=== PATIENT | male | born 1985 | race American Indian/Alaskan Native ===

== ENCOUNTER 2018-06-24 11:52 | Emergency (ER) | payer BC ==
[2018-06-24] MEDS ORDERED: Tetracaine HCl/PF 0.5% 4 ML Bottle EYERT ONE (12:37)
[2018-06-24] MEDS ORDERED: Fluorescein 1 MG Ophth Strip EYERT ONE (12:38)
[2018-06-24] MEDS ORDERED: Gentamicin 0.3% Ophth Soln 5 ML Bottle EYERT ONE (12:39)
--- NOTE | 2018-06-24 12:59 | EDM.PDOC ---
Scribed by Lee Ann Hutchinson 06/24/18 1259 for Calvin Bray MD ED HPI GENERAL MEDICAL PROBLEM - General Chief Complaint: Eye Problems Stated Complaint: EYE PROBELMS Time Seen by Provider: 06/24/18 12:37 Source of Information: Reports: Patient, RN, RN Notes Reviewed History Limitations: Reports: No Limitations - History of Present Illness INITIAL COMMENTS - FREE TEXT/NARRATIVE: Patient presents to ER with complaint of pain in the right eye. He thinks he has something in the right eye for 3 days. He states has contacts in and felt something at the upper portion of the eye. He wears soft contacts and had to keep them in for about 3 hours after the irritation began. The right eye and eyelid is red and swollen, states has been having tears and pinkeye over the counter med, took Tylenol yesterday. Today he rates the pain 5/10 but took nothing for pain today. He states his vision is blurry with the right eye. Onset: Gradual Duration: Getting Worse Location: Reports: Other (right eye) Quality: Reports: Ache Severity: Moderate Improves with: Reports: None Worsens with: Reports: None Associated Symptoms: Reports: No Other Symptoms Right Eye Pain Score (Numeric/FACES): 5 - Related Data Allergies Allergy/AdvReac Type Severity Reaction Status Date / Time No Known Allergies Allergy Verified 06/24/18 12:05 Home Meds: Home Meds Omeprazole 20 mg PO DAILY 06/24/18 [History] Past Medical History HEENT History: Reports: Impaired Vision Other HEENT History: wears glasses Cardiovascular History: Reports: None Respiratory History: Reports: None Gastrointestinal History: Reports: GERD Genitourinary History: Reports: None Musculoskeletal History: Reports: None Neurological History: Reports: None Psychiatric History: Reports: None Endocrine/Metabolic History: Reports: None Hematologic History: Reports: None Immunologic History: Reports: None Oncologic (Cancer) History: Reports: None Dermatologic History: Reports: None - Infectious Disease History Infectious Disease History: Reports: None - Past Surgical History Head Surgeries/Procedures: Reports: None Social & Family History - Family History Family Medical History: Noncontributory - Tobacco Use Smoking Status *Q: Current Every Day Smoker Years of Tobacco use: 1 Packs/Tins Daily: 0.5 Second Hand Smoke Exposure: No - Caffeine Use Caffeine Use: Reports: Energy Drinks - Recreational Drug Use Recreational Drug Use: No - Living Situation & Occupation Living situation: Reports: with Family Occupation: Employed ED ROS GENERAL - Review of Systems Review Of Systems: ROS reveals no pertinent complaints other than HPI. ED EXAM GENERAL W FULL EYE - Physical Exam Exam: See Below Exam Limited By: No Limitations General Appearance: Alert, WD/WN, No Apparent Distress Eye Exam: Right Eye: Conjunctival Injection, Corneal Abrasion, Left Eye: Normal Inspection, Bilateral Eye: EOMI, PERRL Eyelids: Right: Erythema (mild), Lid Everted for Exam, Left: Normal Appearance Conjunctiva & Sclera: Right: Discharge, Injected, Left: Normal Appearance Cornea Exam: Right: Corneal Abrasion, Examined with Flourescein, Left: Normal Appearance Extraocular Movements: Bilateral: Intact Pupils: Normal Accommodation Pupillary Size: Bilateral: 3 mm Pupillary Reaction: Bilateral: Brisk Anterior Chamber: Right: Normal Appearance Ears: Normal External Exam Nose: Normal Inspection Throat/Mouth: Normal Voice, No Airway Compromise Head: Atraumatic, Normocephalic Neck: Normal Inspection Respiratory/Chest: No Respiratory Distress Neurological: Alert, Oriented, No Motor/Sensory Deficits Psychiatric: Normal Mood Skin Exam: Warm, Dry, Intact, Normal Color, No Rash Course - Vital Signs Last Recorded V/S: Last Vital Signs Temp 34.9 C L 06/24/18 11:59 Pulse 109 H 06/24/18 11:59 Resp 16 06/24/18 11:59 BP 145/93 H 06/24/18 12:10 Pulse Ox 98 06/24/18 11:59 - Orders/Labs/Meds Meds: Medications Discontinued Medications Generic Name Dose Route Start Last Admin Trade Name Yony PRRiley Reason Stop Dose Admin Fluorescein Sodium 1 mg 06/24/18 12:38 06/24/18 12:48 Ful-Morena EYERT 06/24/18 12:39 1 mg ONETIME ONE Administration Gentamicin Sulfate 1 ml 06/24/18 12:39 06/24/18 12:48 Garamycin 0.3% Ophth Soln EYERT 06/24/18 12:40 1 ml ONETIME ONE Administration Tetracaine HCl 1 ml 06/24/18 12:37 06/24/18 12:48 Tetracaine 0.5% Steri-Unit Lyndsay EYERT 06/24/18 12:38 1 ml ONETIME ONE Administration Departure - Departure Time of Disposition: 12:56 Disposition: Home, Self-Care 01 Condition: Good Clinical Impression: Corneal abrasion Qualifiers: Encounter type: initial encounter Laterality: right Qualified Code(s): S05.01XA - Injury of conjunctiva and corneal abrasion without foreign body, right eye, initial encounter Conjunctivitis Qualifiers: Conjunctivitis type: acute Acute conjunctivitis type: unspecified Laterality: right Qualified Code(s): H10.31 - Unspecified acute conjunctivitis, right eye - Discharge Information *PRESCRIPTION DRUG MONITORING PROGRAM REVIEWED*: Not Applicable *COPY OF PRESCRIPTION DRUG MONITORING REPORT IN PATIENT [place]: Not Applicable Instructions: Corneal Abrasion Forms: ED Department Discharge Additional Instructions: Rx: Tylenol No. 3 *Do not drive or work while under the influence of this medication. Gentamicin Ophthalmic Solution 0.3% Do not wear contact lens in right eye until completely improved. Do not rub or wipe the right eye. Follow up in eye clinic on Tuesday, for recheck. I have read and agree with the documentation that has been completed regarding this visit. By signing this record, I attest that the documentation was completed in my physical presence and is an accurate record of the encounter.
== END 2018-06-24 13:05 | disposition home or self-care (01) ==
LOC: DL.ED 11:52
DX: S05.01XA Injury of conjunctiva and corneal abrasion without foreign body, right eye, initial encounter (principal); H10.31 Unspecified acute conjunctivitis, right eye; F17.210 Nicotine dependence, cigarettes, uncomplicated; X58.XXXA Exposure to other specified factors, initial encounter
CPT/HCPCS: 99283; A9270

== ENCOUNTER 2024-09-10 12:19 | Emergency (ER) | payer BC ==
[2024-09-10] MEDS ORDERED: Sodium Chloride 0.9% 10 ML Syringe FLUSH PRN (12:58)
[2024-09-10] MEDS: HYDROmorphone 1 MG/ML Syringe IVPUSH ONE ×2 (13:12→15:55)
[2024-09-10] MEDS: Ondansetron 4 MG/2 ML SDV IVPUSH ONE (13:12)
[2024-09-10 13:15] LABS: BASOPHILS PERCENT AUTO 0.1 % (0.0-1.0); EOSINOPHILS PERCENT AUTO 0.6 % (1.0-3.0); HEMATOCRIT 41.1 % (40.0-54.0); HEMOGLOBIN 14.1 g/dL (14.0-18.0); LYMPHOCYTES PERCENT AUTO 6.5 % (20.5-50.1); MEAN CORPUSCULAR HGB CONC 34.3 g/dL (33.0-35.0); MEAN CORPUSCULAR VOLUME 81.7 fL (80-100); MONOCYTES PERCENT AUTO 6.1 % (2-8); NEUTROPHILS PERCENT AUTO 86.7 % (42.2-75.2); PLATELET COUNT,PLT 401 10^3/uL (150-450); RED BLOOD CELL COUNT 5.03 10^6/uL (4.6-6.2); WHITE BLOOD CELL COUNT,WBC 13.4 10^3/uL (5.0-10.0)
[2024-09-10] MEDS: Sodium Chloride 0.9% 1,000 ML IV ONE ×2 (13:19→16:28)
[2024-09-10 13:36] LABS: INR 1.1 (0.9-1.2); PROTHROMBIN TIME 11.7 SEC (9.0-12.0); PTT,PARTIAL THROMBOPLSTIN TIME 24.9 SEC (22.0-34.0)
[2024-09-10 13:42] LABS: LACTIC ACID 2.2 mmol/L (0.4-2.0)
[2024-09-10 13:50] LABS: A/G RATIO 0.7; ALANINE AMINOTRANSFERASE,ALT 44 U/L (16-63); ALBUMIN 3.5 g/dL (3.4-5.0); ALKALINE PHOSPHATASE 125 U/L (46-116); ANION GAP 22.7 mEq/L (7-13); ASPARTATE AMNIOTRANSFERASE,AST 23 U/L (15-37); BILIRUBIN DIRECT 0.6 mg/dL (0.0-0.2); BILIRUBIN TOTAL 1.9 mg/dL (0.2-1.0); BLOOD UREA NITROGEN,BUN 15 mg/dL (7-18); BUN/CREATININE RATIO 10.2 (No establ ref range); C-REACTIVE PROTEIN 10.08 ng/dL (<=0.50); CALCIUM 9.7 mg/dL (8.5-10.1); CARBON DIOXIDE,CO2 20 mmol/L (21-32); CHLORIDE,CL 97 mmol/L (98-107); CREATININE 1.47 mg/dL (0.70-1.30); EST CRCL DRUG DOSING (CG) 74.05 mL/min; GLUCOSE RANDOM 122 mg/dL (70-99); POTASSIUM,K 3.7 mmol/L (3.5-5.1); PROTEIN TOTAL,TP 8.6 g/dL (6.4-8.2); SODIUM,NA 136 mmol/L (136-145)
[2024-09-10 13:58] LABS: ESTIMATED GFR 62 mL/min (>=60); LIPASE > 250 U/L (16-77)
[2024-09-10] MEDS: Iopamidol 612 MG/ML 100 ML Bottle IVPUSH ONE (14:02)
[2024-09-10] MEDS: diphenhydrAMINE 50 MG/ML SDV IVPUSH ONE (14:20)
[2024-09-10] MEDS: methylPREDNISolone Sodium Succinate 125 MG/2 ML SDV IVPUSH ONE (14:20)
[2024-09-10] MEDS: Iopamidol 755 Mg/ML 100 ML Bottle IVPUSH ONE (14:55)
[2024-09-10] MEDS: HYDROmorphone 1 MG/ML Syringe ONE (15:53)
[2024-09-10] MEDS: Piperacillin/Tazobactam 4.5 GM in Sodium Chloride 0.9% 100 ML IV ONE (16:27)
== END 2024-09-10 17:15 | disposition home or self-care (01) ==
LOC: DL.ED 12:19
DX: C49.A3 Gastrointestinal stromal tumor of small intestine (principal); K21.9 Gastro-esophageal reflux disease without esophagitis; Z79.899 Other long term (current) drug therapy
CPT/HCPCS: 36415; 71045; 71275; 74177; 80053; 82248; 83605; 83690; 83735; 84484; 85025; 85610; 85730; 86140; 87040; 93005; 93010; 96361; 96365; 96375; 96376; 99284; 99285; J1171; J1200; J2405; J2543; J2919; J7030; Q9967